=== PATIENT | female | born 1945 | race Caucasian/White ===

== ENCOUNTER → 2017-10-28 | Outpatient (CLI) | payer OTHER | END | disposition home or self-care (01) | LOC: KCIC MAMMO 09:58 | DX: Z12.31 Encounter for screening mammogram for malignant neoplasm of breast (principal) | CPT/HCPCS: 77063; 77067 ==

== ENCOUNTER 2018-03-16 06:21 | Outpatient (CLI) | payer OTHER ==
[2018-03-16] MEDS ORDERED: LIDOCAINE 2% 20 ML VIAL. (07:07)
[2018-03-16] MEDS ORDERED: IODIXANOL 320 MG/ML 100 ML VIAL. (07:07)
[2018-03-16 07:19] LABS: HEMOGLOBIN 13.4 g/dL (12.0-15.5); MEAN CORPUSCULAR HEMOGLOBIN 31 pg (25-35); MEAN CORPUSCULAR HGB CONC 34 g/dL (31-37); MEAN CORPUSCULAR VOLUME 89 fL (79-100); PLATELET COUNT 213 x10^3/uL (140-400); RED BLOOD COUNT 4.37 x10^6/uL (3.50-5.40); RED CELL DISTRIBUTION WIDTH 15.2 % (11.5-14.5); WHITE BLOOD COUNT 6.9 x10^3/uL (4.0-11.0)
[2018-03-16 07:33] LABS: INR 1.1 (0.8-1.1); PROTHROMBIN TIME PATIENT 13.2 SEC (11.7-14.0)
[2018-03-16] MEDS ORDERED: fentaNYL PF VIAL 100 MCG/2 ML VIAL (08:01)
[2018-03-16] MEDS ORDERED: MIDAZOLAM HCL/PF 5 MG/5 ML VIAL. (08:01)
[2018-03-16] MEDS ORDERED: NITROGLYCERIN OINT 1 GM PACKET. (08:26)
[2018-03-16] MEDS: LIDOCAINE 2% 20 ML VIAL. IJ (09:14)
[2018-03-16] MEDS: IODIXANOL 320 MG/ML 100 ML VIAL. IART (09:14)
[2018-03-16] MEDS: fentaNYL PF VIAL 100 MCG/2 ML VIAL IV (09:16)
[2018-03-16] MEDS: MIDAZOLAM HCL/PF 5 MG/5 ML VIAL. IV (09:16)
[2018-03-16] MEDS: NITROGLYCERIN OINT 1 GM PACKET. TP (09:16)
[2018-03-16] MEDS ORDERED: IV NORMAL SALINE 1000ML BAG 1,000 ML IV (09:17)
[2018-03-16] MEDS ORDERED: NITROGLYCERIN SUBLINGUAL 0.4 MG BOTTLE OF 25. SL (09:30)
[2018-03-16] MEDS ORDERED: 0.9 % SODIUM CHLORIDE 10 ML DISP.SYRIN. IV (09:30)
== END 2018-03-16 14:35 | disposition home or self-care (01) ==
LOC: CCL 06:21
DX: R94.39 Abnormal result of other cardiovascular function study (principal); I12.9 Hypertensive chronic kidney disease with stage 1 through stage 4 chronic kidney disease, or unspecified chronic kidney disease; E11.22 Type 2 diabetes mellitus with diabetic chronic kidney disease; N18.3 Chronic kidney disease, stage 3 (moderate); J45.909 Unspecified asthma, uncomplicated; Z87.01 Personal history of pneumonia (recurrent); K21.9 Gastro-esophageal reflux disease without esophagitis; M10.9 Gout, unspecified; M19.90 Unspecified osteoarthritis, unspecified site; Z98.42 Cataract extraction status, left eye; Z98.41 Cataract extraction status, right eye; Z96.1 Presence of intraocular lens; Z96.653 Presence of artificial knee joint, bilateral; Z90.49 Acquired absence of other specified parts of digestive tract; Z96.641 Presence of right artificial hip joint; Z88.1 Allergy status to other antibiotic agents; Z98.890 Other specified postprocedural states; Z79.82 Long term (current) use of aspirin; Z79.899 Other long term (current) drug therapy; Z79.84 Long term (current) use of oral hypoglycemic drugs
CPT/HCPCS: 36415; 85027; 85610; 93458; 93460; 99152; 99153; C1769; C1771; C1892; G0269; J1644; J2250; J3010

== ENCOUNTER → 2018-09-07 | Outpatient (CLI) | payer OTHER ==
[2018-03-16 13:10] VITALS: BP 145/85
[~2018-09-07] MED LIST: ACYC400T PO; ALBU8.5H6 IH; ALLO300T PO; AMLO5TAB7 PO; ASPI-630 PO; BACL10TA PO; CARB15DR3 EACHEYE; CELE400C PO; DIPH25TA2 PO; FLUT9.9S NS; HYDR-2761 PO; LORA-877 PO; LOSA1TAB22 PO; LOSA1TAB25 PO; OMEP20CA9 PO; OXYC1TAB19 PO; TEMA15CA PO; WARF-78 PO; WARF4TAB68 PO
--- NOTE | 2018-09-07 11:53 | KCIC ---
CHEST PA LATERAL History: Shortness of air, wheezing, chest tightness x2 days. Comparison: AP chest February 18, 2016. Findings: Atherosclerotic aortic arch. The cardiomediastinal silhouette is normal. Pulmonary vasculature is normal. The lungs are clear. No pleural effusion or pneumothorax is seen. There is no acute bone abnormality. Degenerative endplate spurring of the thoracic spine. IMPRESSION: No acute cardiopulmonary process. Electronically signed by: Archie Bella MD (09/07/2018 11:49 AM) [id number]
== END | disposition home or self-care (01) ==
LOC: KCIC 11:26
PROVIDERS: ATTEND Physician Assistant Medical
DX: I70.0 Atherosclerosis of aorta (principal); R07.89 Other chest pain; R06.02 Shortness of breath
CPT/HCPCS: 71046

== ENCOUNTER → 2018-12-27 | Outpatient (CLI) | payer OTHER ==
[2018-03-16 13:10] VITALS: BP 145/85
[~2018-12-27] MED LIST changes: +AMLO5TAB10 PO; -AMLO5TAB7 PO; -LORA-877 PO; +LORA-915 PO; +OMEP20CA10 PO; -OMEP20CA9 PO
--- NOTE | 2018-12-27 13:35 | KCIC ---
Bilateral digital screening mammograms with 3-D tomosynthesis: Reason for examination: Routine screening. Comparison is made to previous studies dated back to 04/16/2015. Bilateral mammograms in CC and oblique projections were obtained with 2-D imaging and 3-D tomosynthesis imaging on a Siemens Inspiration unit and reviewed on the workstation. Interpretation was made with the benefit of CAD. The skin and nipples show no abnormalities. No abnormal axillary lymph nodes are seen. The breast parenchyma shows scattered fatty and fibroglandular density. (Breast density: Category B.) There continue to be small nodular parenchymal densities bilaterally which are stable. There are no new dominant masses, suspicious calcifications or architectural distortion. Benign calcifications are present. Impression: No evidence of malignancy. Recommend routine screening. BI-RAD Category 2: Benign. "Our facility is accredited by the [employer] Mammography Program." This patient's information has been entered into a reminder system for the patient to be notified with the results of her examination and a target date for the next mammogram. Electronically signed by: Ana Claros MD (12/27/2018 1:32 PM) [id number]
== END | disposition home or self-care (01) ==
LOC: KCIC MAMMO 11:54
PROVIDERS: ATTEND Physician Assistant Medical
DX: Z12.31 Encounter for screening mammogram for malignant neoplasm of breast (principal); R92.8 Other abnormal and inconclusive findings on diagnostic imaging of breast
CPT/HCPCS: 77063; 77067

== ENCOUNTER → 2019-09-11 | Outpatient (CLI) | payer OTHER ==
[2019-06-17 15:00] VITALS: BP 142/59
[~2019-09-11] MED LIST changes: +CARV25TA2 PO; +HYDR-2765 PO; +MELO15TA23 PO; +OMEP-229 PO; -OMEP20CA10 PO
--- NOTE | 2019-09-11 09:29 | RAD ---
EXAM: Chest, 2 views. HISTORY: Shortness of air. COMPARISON: 06/14/2019 FINDINGS: 2 views of the chest are obtained. There is no infiltrate, pleural effusion or pneumothorax. The heart is normal in size. There are few small nodular opacities within both lungs. IMPRESSION: 1. No acute pulmonary finding. 2. Small pulmonary nodules, better characterized on the recent CT dated 06/14/2019. Electronically signed by: Lyubov Miranda MD (09/11/2019 9:26 AM) [place] [id number]
--- NOTE | 2019-09-11 12:52 | RAD ---
V/Q LUNG SCAN CLINICAL INDICATIONS: Shortness of air for 4 months. History of pulmonary embolism in June 2019. COMPARISON: June 14, 2019 V/Q lung scan and chest x-ray dated September 11, 2019. TECHNIQUE: After inhalation of 12 mCi of Xenon 133 gas, anterior and posterior planar images of the lung villalobos were performed in the single breath and equilibrium and washout phases. After IV infusion of 6.6 mCi of technetium 99m MAA, multiplanar images of both lung villalobos were performed. FINDINGS: There is retention of radiotracer activity within both lung villalobos especially within the right midlung zone consistent with air trapping in association with COPD. Multiple bilateral peripheral subsegmental perfusion defects are again seen. The previously seen segmental wedge-shaped perfusion defect within the left upper lobe on the previous study has resolved. No new segmental perfusion defects are seen. IMPRESSION: Previously seen left upper lobe segmental perfusion defect on June 14, 2019 has resolved. No new segmental perfusion defects are seen today. Therefore, the overall probability for pulmonary embolism is considered low. Electronically signed by: Mark Ledbetter MD (09/11/2019 12:49 PM) [facility]
== END | disposition home or self-care (01) ==
LOC: NM 08:53
PROVIDERS: ATTEND Internal Medicine Critical Care Medicine
DX: R91.8 Other nonspecific abnormal finding of lung field (principal); I10 Essential (primary) hypertension; Z79.01 Long term (current) use of anticoagulants; Z86.711 Personal history of pulmonary embolism
CPT/HCPCS: 71046; 78582; A9540; A9558; 96374

== ENCOUNTER → 2019-12-12 | Outpatient (CLI) | payer MEDICARE ==
[2019-06-17 15:00] VITALS: BP 142/59
[~2019-12-12] MED LIST changes: -OMEP-229 PO; +OMEP20CA16 PO
--- NOTE | 2019-12-12 17:21 | RAD ---
EXAM: CHEST PA LATERAL INDICATION: Cough. TECHNIQUE: Single view COMPARISON: 09/11/2019 FINDINGS: The heart size is normal. The great vessels appear unremarkable. There is no hilar or mediastinal mass. Lungs show mild diffuse interstitial prominence. There is no pleural effusion or pneumothorax. There are no significant osseous abnormalities. IMPRESSION: Mild diffuse interstitial prominence. Correlate for any evidence of fluid overload. No focal consolidation. Electronically signed by: Jimmy Lott MD (12/12/2019 5:18 PM) [id number]
== END | disposition home or self-care (01) ==
LOC: RAD 12:37
PROVIDERS: ATTEND Internal Medicine Pulmonary Disease
DX: R05 Cough (principal)
CPT/HCPCS: 71046

== ENCOUNTER → 2019-12-29 | Outpatient (CLI) | payer MEDICARE ==
[2019-06-17 15:00] VITALS: BP 142/59
--- NOTE | 2019-12-29 12:33 | RAD ---
EXAM: CT Chest without IV contrast CLINICAL HISTORY: Lung nodule COMPARISON: 06/14/2019, thyroid ultrasound 06/15/2019 TECHNIQUE: CT of the chest without intravenous contrast. Axial, coronal and sagittal reformatted images were generated. ---PQRS compliance statement - One or more of the following individualized dose reduction techniques were utilized for this study: 1. Automated exposure control 2. Adjustment of the mA and/or kV according to patient size 3. Use of iterative reconstruction technique--- FINDINGS: Lack of intravenous contrast limits evaluation of solid organs, vasculature, and lymph nodes. Chest: No axillary lymphadenopathy. No mediastinal or hilar lymphadenopathy. Right thyroid nodule measures 4.2 x 4.1 cm. Heart is not enlarged. Aortic calcifications are seen. No pleural effusion or pneumothorax. 3 mm right upper lobe lung nodule (series 3 image 74) is stable. 3 mm lung nodule along the minor fissure (series 3 image 136) is stable. 4 mm right middle lobe lung nodule (series 3 image 165) is stable. 4 mm peripheral right lower lobe lung nodule (series 3 image 206) is stable. Posterior right lower lobe lung nodule (series 3 image 204) is stable. 6 mm nodule in the medial left upper lobe (series 3 image 100) is stable. Left lower lobe lung nodule (series 3 image 177) is stable. Several additional <6 mm lung nodules are seen bilaterally, stable. Visualized Upper abdomen: Cholecystectomy clips are seen. Upper abdomen is otherwise clear. Bones: Osseous structures are grossly stable including degenerative changes of the spine. IMPRESSION: Multiple bilateral lung nodules are grossly stable in size. Continued follow-up with CT chest in 6-12 months is recommended. Right thyroid nodule measures 4.2 cm, FNA was recommended on prior thyroid ultrasound. Electronically signed by: Jovanni Valdez MD (12/29/2019 12:30 PM) [email or web address]
== END | disposition home or self-care (01) ==
LOC: CT 10:49
PROVIDERS: ATTEND Internal Medicine Critical Care Medicine
DX: R91.8 Other nonspecific abnormal finding of lung field (principal); E04.1 Nontoxic single thyroid nodule; I70.0 Atherosclerosis of aorta; Z90.49 Acquired absence of other specified parts of digestive tract
CPT/HCPCS: 71250

== ENCOUNTER → 2020-02-21 | Outpatient (CLI) | payer MEDICARE ==
[2019-06-17 15:00] VITALS: BP 142/59
[~2020-02-21] MED LIST changes: +AMOX1TAB11 PO; +AZIT250T6 PO; +HYDR12.58 PO; +MECL-75 PO; +UMEC62.5 IH; +[UNRECOGNIZED DRUG - CODE] PO
--- NOTE | 2020-02-21 12:50 | RAD ---
PA and lateral views of the chest. Comparison: 12/12/2019. Indication: Cough Findings: The heart size is normal. No pneumothorax or effusion. There are a few patchy peripheral interstitial opacities identified in the lungs. The bony structures are intact. Impression: 1. Patchy peripheral interstitial opacities suggest atypical pneumonia given history of cough. Electronically signed by: Marcelo Smith MD (02/21/2020 12:47 PM) [id number]
== END | disposition home or self-care (01) ==
LOC: RAD 10:55
PROVIDERS: ATTEND Physician Assistant Medical
DX: R05 Cough (principal); R06.02 Shortness of breath
CPT/HCPCS: 71046

== ENCOUNTER → 2020-05-29 | Outpatient (CLI) | payer MEDICARE ==
[2020-02-24 11:00] VITALS: BP 149/66
[~2020-05-29] MED LIST changes: -WARF-78 PO; +WARF5TAB2 PO
--- NOTE | 2020-05-29 13:04 | RAD ---
EXAM: CAROTID DOPPLER SONOGRAM. HISTORY: Dizziness, vertigo. TECHNIQUE: Becker scale and color Doppler sonographic evaluation of the neck with spectral waveform analysis was performed and static images are submitted for review. FINDINGS: RIGHT: The peak systolic velocity within the common carotid artery is 68 cm/sec. The peak systolic velocity within the internal carotid artery is 63 cm/sec and the end diastolic velocity within the internal carotid artery is 16 cm/sec. The ICA/CCA ratio is 0.75. Grayscale images demonstrate no grayscale stenosis. LEFT: The peak systolic velocity within the common carotid artery is 98 cm/sec. The peak systolic velocity within the internal carotid artery is 103 cm/sec and the end diastolic velocity within the internal carotid artery is 19 cm/sec. The ICA/CCA ratio is 1.1. Grayscale images demonstrate no grayscale stenosis. There is antegrade flow within both vertebral arteries. IMPRESSION: 1. No evidence of hemodynamically significant stenosis. PQRS Compliance Statement - Stenosis calculations for CT, MR and conventional angiography are based upon measurement of the distal ICA diameter in accordance with the NASCET methodology. Stenosis calculations for carotid ultrasound studies are derived from validated velocity criteria which are known to correlate with the NASCET methodology. Electronically signed by: Natalie Griffin MD (05/29/2020 1:01 PM) [id number]
== END | disposition home or self-care (01) ==
LOC: US 11:58
PROVIDERS: ATTEND Physician Assistant Medical
DX: R42 Dizziness and giddiness (principal)
CPT/HCPCS: 93880

== ENCOUNTER → 2020-07-10 | Outpatient (CLI) | payer MEDICARE ==
[2020-02-24 11:00] VITALS: BP 149/66
[~2020-07-10] MED LIST changes: -DIPH25TA2 PO; +[UNRECOGNIZED DRUG - CODE] PO
[2020-07-10 11:31] LABS: CREATININE 1.3 mg/dL (0.6-1.0); GFR 39.8
== END | disposition home or self-care (01) ==
LOC: CT 11:05
PROVIDERS: ATTEND Internal Medicine Cardiovascular Disease
DX: I26.99 Other pulmonary embolism without acute cor pulmonale (principal); E11.8 Type 2 diabetes mellitus with unspecified complications
CPT/HCPCS: 36415; 82565; 84520

== ENCOUNTER → 2020-08-09 | Outpatient (CLI) | payer MEDICARE ==
[2020-02-24 11:00] VITALS: BP 149/66
[~2020-08-09] MED LIST changes: +AMLO-186 PO; -AMLO5TAB10 PO
--- NOTE | 2020-08-09 10:24 | RAD ---
Chest radiograph 08/09/2020 12:00 AM INDICATION: Palpitations for one year COMPARISON: 02/21/2020 TECHNIQUE: Frontal and lateral views of the chest are provided. FINDINGS: The cardiomediastinal silhouette is within normal limits. There is increased pulmonary vascular congestion. No significant pleural effusions or pneumothorax. No significant osseous abnormality is identified. IMPRESSION: Mild pulmonary vascular congestion as may be seen with congestive heart failure or alternate fluid overload state. Electronically signed by: Martha Valero MD (08/09/2020 10:21 AM) [id number]
--- NOTE | 2020-08-09 12:38 | RAD ---
EXAM: Pulmonary perfusion imaging. HISTORY: History of pulmonary embolism, dyspnea. COMPARISON: 09/11/2019, 08/09/2020, 12/29/2019. FINDINGS: 5.5 mCi Tc-99m MAA was administered intravenously. Scintigraphic images of the lungs were obtained in multiple projections. There are diffuse perfusion defects most notably within both upper lobes. This most likely reflects lung disease as seen on prior CT. There are a few small segmental defects, superimposed on these large defects. This appearance is not clearly changed since 09/11/2019. IMPRESSION: 1. Diffuse perfusion abnormalities bilaterally appear stable and most likely reflect background lung disease. However, pulmonary emboli cannot be excluded based on these findings. CTA could further evaluate if there is persistent concern. Electronically signed by: Natalie Griffin MD (08/09/2020 12:35 PM) [id number]
== END ==
LOC: NM 08:42
PROVIDERS: ATTEND Internal Medicine Cardiovascular Disease
DX: I26.99 Other pulmonary embolism without acute cor pulmonale (principal); R00.2 Palpitations; R09.89 Other specified symptoms and signs involving the circulatory and respiratory systems
CPT/HCPCS: 71046; 78580; A9540

== ENCOUNTER → 2020-10-22 | Outpatient (CLI) | payer MEDICARE ==
[2020-02-24 11:00] VITALS: BP 149/66
[~2020-10-22] MED LIST changes: +ACYC-12 PO; -ACYC400T PO
--- NOTE | 2020-10-24 10:53 | CARD ---
MR#: [id number] Account#: Date of Study: 10/22/2020 Ordering Physician: Loretta: Jenae Noe RDCS APPROVED REPORT EXAM: Two-dimensional and M-mode echocardiogram with Doppler and color Doppler. Other Information Quality : AverageHR: 58bpm Rhythm : NSRTechnically limited study due to body habitus. INDICATION Hypertension/HCVD RISK FACTORS Hypertension 2D DIMENSIONS Left Atrium(2D)3.4 (1.6-4.0cm)IVSd0.9 (0.7-1.1cm) Aortic Root(2D)2.8 (2.0-3.7cm)LVDd5.0 (3.9-5.9cm) LVOT Diameter2.1 (1.8-2.4cm)PWd1.0 (0.7-1.1cm) LVDs3.6 (2.5-4.0cm)FS (%) 28.5 % SV64.3 mlLVEF(%)54.8 (>50%) Aortic Valve AoV Peak Yariel.132.5cm/sAoV VTI34.0cm AO Peak GR.7.0mmHgLVOT Peak Yariel.77.5cm/s AO Mean GR.4mmHgAVA (VMAX)2.04cm2 Mitral Valve MV E Mxwlgvsy14.6cm/sMV DECEL [id number] MV A Enbyumsm384.0cm/sE/A Ratio0.8 LEFT VENTRICLE The left ventricle is normal size. There is normal left ventricular wall thickness. The left ventricu lar systolic function is normal and the ejection fraction is within normal range. Estimated ejection fraction is 55-60% There is normal LV segmental wall motion. Transmitral Doppler flow pattern is Grad e I-abnormal relaxation pattern. RIGHT VENTRICLE The right ventricle is normal size. There is normal right ventricular wall thickness. The right ventr icular systolic function is normal. ATRIA The left atrium size is normal. The right atrium size is normal. The interatrial septum is intact wit h no evidence for an atrial septal defect or patent foramen ovale as noted on 2-D or Doppler imaging. AORTIC VALVE The aortic valve is grossly normal in structure and function. Not well visualized. Doppler and Color Flow revealed no significant aortic regurgitation. There is no significant aortic valvular stenosis. MITRAL VALVE The mitral valve is normal in structure and function. There is no evidence of mitral valve prolapse. There is no mitral valve stenosis. Doppler and Color-flow revealed trace to mild mitral regurgitation . TRICUSPID VALVE The tricuspid valve is normal in structure and function. Doppler and Color Flow revealed no tricuspid valve regurgitation noted. There is no tricuspid valve stenosis. PULMONIC VALVE Doppler and Color Flow revealed no pulmonic valvular regurgitation. There is no pulmonic valvular akanksha nosis. GREAT VESSELS The aortic root is normal in size. The ascending aorta is normal in size. The IVC is normal in size a nd collapses >50% with inspiration. PERICARDIAL EFFUSION There is no evidence of significant pericardial effusion. Critical Notification Critical Value: No <Conclusion> The left ventricular systolic function is normal and the ejection fraction is within normal range. E stimated ejection fraction is 55-60% There is normal LV segmental wall motion. Signed by : Diego Ramirez, Electronically Approved : 10/22/2020 15:40:37
== END ==
LOC: ECHO 13:06
PROVIDERS: ATTEND Internal Medicine Cardiovascular Disease
DX: I34.0 Nonrheumatic mitral (valve) insufficiency (principal); I10 Essential (primary) hypertension
CPT/HCPCS: 93306

== ENCOUNTER → 2021-05-28 | Outpatient (CLI) | payer MEDICARE ==
[2020-02-24 11:00] VITALS: BP 149/66
--- NOTE | 2021-05-28 17:22 | KCIC ---
Bilateral digital screening mammograms with 3-D tomosynthesis: Reason for examination: Routine screening. Comparison is made to previous studies dated back to 06/23/2016 Bilateral mammograms in CC and oblique projections were obtained with 2-D imaging and 3-D tomosynthes is imaging on a Siemens Inspiration unit and reviewed on the workstation. Interpretation was made wit h the benefit of CAD. The skin and nipples show no abnormalities. No abnormal axillary lymph nodes are seen. The breast par enchyma shows scattered fatty and fibroglandular density. (Breast density: Category B.). Waxing and w aning scattered small nodular parenchymal densities bilaterally. There are no new dominant masses, rose spicious calcifications or architectural distortion. Benign calcifications are present. Impression: No evidence of malignancy. Recommend routine screening. BI-RAD Category 2: Benign. "Our facility is accredited by the [employer] Mammography Program." This patient's information has been entered into a reminder system for the patient to be notified wit h the results of her examination and a target date for the next mammogram. Electronically signed by: Patric Mendoza DO (05/28/2021 5:20 PM) [email or web address]
== END ==
LOC: KCIC MAMMO 10:48
PROVIDERS: ATTEND Family Medicine
DX: Z12.31 Encounter for screening mammogram for malignant neoplasm of breast (principal)
CPT/HCPCS: 77063; 77067

== ENCOUNTER 2021-07-17 12:35 | Emergency (ER) | payer MEDICARE ==
[~2021-07-17] VITALS: Ht 154.9 cm; Wt 91.8 kg
[2021-07-17] MEDS ORDERED: FUROSEMIDE 40 MG TABLET. PO ONE (13:30)
--- NOTE | 2021-07-17 14:28 | RAD ---
EXAM: Right lower extremity venous Doppler sonogram. HISTORY: Pain and swelling. TECHNIQUE: Becker scale and color Doppler sonographic evaluation of the right lower extremity veins wit h spectral waveform analysis was performed. FINDINGS: There is normal color flow, normal compressibility and there are normal spectral waveforms in the common femoral, superficial femoral, popliteal, posterior tibial and greater saphenous veins. There is soft tissue edema. IMPRESSION: No Doppler evidence of lower extremity deep venous thrombosis. Electronically signed by: Lyubov Miranda MD (07/17/2021 2:26 PM) [id number]
[2021-07-17 14:50] VITALS: BP 155/70
--- NOTE | 2021-07-17 15:06 | PHYS DOC ---
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 Past Surgical History: Appendectomy, Cholecystectomy, Hip Replacement, Knee Replacement Additional Past Surgical Histo: breast surgery Smoking Status: Never Smoker Alcohol Use: None Drug Use: None General Adult EDM: Chief Complaint: LOWER EXTREMITY EDEMA HPI: HPI: Patient is a 75 year old female with history of COPD, lung disease, hypertension, high cholesterol, chronic edema to bilateral lower extremities, who presents to the ED today complaining of mild intermittent right lower extrem ity pain and swelling, symptoms have been going on for over 1 week, patient states symptoms are worse when she bends her right knee and bears weight to the right lower extremity. Patient states she was seen by the PCP a week ago for the same complaint. She states they did right hip x-rays which were negative for any acute findings. She states she was put on hydrocodone and prednisone. She completed prednisone yesterday. She states she has continued to have the pain and was sent to the ED to have an ultrasound of the right lower extremity to rule out DVT. She is on Eliquis. Review of Systems: Review of Systems: Constitutional: Denies fever or chills. [] Eyes: Denies change in visual acuity. [] HENT: Denies nasal congestion or sore throat. [] Respiratory: Denies cough or shortness of breath. [] Cardiovascular: Denies chest pain or edema. [] GI: Denies abdominal pain, nausea, vomiting, bloody stools or diarrhea. [] : Denies dysuria. [] Musculoskeletal: Denies back pain or joint pain. [] Integument: Reports right lower extremity pain Neurologic: Denies headache, focal weakness or sensory changes. [] Psychiatric: Denies depression or anxiety. [] Heart Score: C/O Chest Pain: N/A Risk Factors: Risk Factors: DM, Current or recent (<one month) smoker, HTN, HLP, family history of CAD, obesity. Risk Scores: Score 0 - 3: 2.5% MACE over next 6 weeks - Discharge Home Score 4 - 6: 20.3% MACE over next 6 weeks - Admit for Clinical Observation Score 7 - 10: 72.7% MACE over next 6 weeks - Early Invasive Strategies Current Medications: Current Medications Medications (Trade) Dose Ordered Sig/Juan Start Time Stop Time Status Last Admin Dose Admin Furosemide (Lasix) 40 mg 1X ONCE 07/17/21 13:30 07/17/21 13:31 DC 07/17/21 14:03 40 MG Allergies: Allergies: Allergies Coded Allergies Type Severity Reaction Last Updated Verified Cephalexin Monohydrate Adverse Reaction Intermediate Itching 03/24/16 Yes Physical Exam: PE: Constitutional: Well developed, well nourished, no acute distress, non-toxic appearance. [] HENT: Normocephalic, atraumatic, bilateral external ears normal, oropharynx moist, no oral exudates, nose normal. [] Eyes: PERRLA, EOMI, conjunctiva normal, no discharge. [] Neck: Normal range of motion, no tenderness, supple, no stridor. [] Cardiovascular:Heart rate regular rhythm, no murmur [] Lungs & Thorax: Bilateral breath sounds clear to auscultation [] Abdomen: Bowel sounds normal, soft, no tenderness, no masses, no pulsatile masses. [] Skin: Warm, dry, no erythema, no rash. [] Back: No tenderness, no CVA tenderness. [] Extremities: No tenderness, no cyanosis, no clubbing, ROM intact, bilateral lower extremity with +3 pitting edema. Negative Homans' sign to bilateral lower extremities. Neurologic: Alert and oriented X 3, normal motor function, normal sensory function, no focal deficits noted. [] Psychologic: Affect normal, judgement normal, mood normal. [] Current Patient Data: Vital Signs: Vital Signs Date Time Temp Pulse Resp B/P (MAP) Pulse Ox O2 Delivery O2 Flow Rate FiO2 07/17/21 12:57 98.9 84 18 194/84 (120) 97 Room Air 98.9 EKG: EKG: [] Radiology/Procedures: Radiology/Procedures: []PROCEDURE: VENOUS LOWER EXTREMITY RIGHT EXAM: Right lower extremity venous Doppler sonogram. HISTORY: Pain and swelling. TECHNIQUE: Becker scale and color Doppler sonographic evaluation of the right lower extremity veins with spectral waveform analysis was performed. FINDINGS: There is normal color flow, normal compressibility and there are normal spectral waveforms in the common femoral, superficial femoral, popliteal, posterior tibial and greater saphenous veins. There is soft tissue edema. IMPRESSION: No Doppler evidence of lower extremity deep venous thrombosis. Electronically signed by: Lyubov Dominguez MD (07/17/2021 2:26 PM) [id number] DICTATED and SIGNED BY: LYUBOV DOMINGUEZ MD DATE: 07/17/21 [id number] Course & Med Decision Making: Course & Med Decision Making Pertinent Labs and Imaging studies reviewed. (See chart for details) This is 75-year-old female patient presented to the ED today with right lower extremity pain, swelling, symptoms for 1 week. Has been following up with the PCP. Was sent for venous Doppler of the right lower extremity which is negative for any acute findings. She was encouraged to continue taking her hydrocodone as needed. Elevate bilateral lower extremities. She is also on a water pill which she is Taking today. She has +3 pitting edema. She was given furosemide in the ED. Will follow up with her own PCP in the course of this week or next week German Disclaimer: German Disclaimer: This electronic medical record was generated, in whole or in part, using a voice recognition dictation system. Departure Departure Impression: Primary Impression: Pain and swelling of right lower extremity Additional Impression: Hypertension Qualified Codes: I10 - Essential (primary) hypertension Disposition: HOME / SELF CARE / HOMELESS Condition: STABLE Referrals: DOLLY SCHNEIDER MD (PCP) follow up next week Patient Instructions: Edema, [id number], Hypertension Additional Instructions: You were evaluated in the emergency room for right lower extremity pain. Your venous Doppler of the right lower extremity is negative for any DVTs. Please follow-up with the primary care doctor in orthopedic doctor next week. Ensure you are taking your water pill. Try to elevate the right lower extremity PAUL ZAMORANO APRN Jul 17, 2021 15:06
== END 2021-07-17 15:20 | disposition home or self-care (01) ==
LOC: ER 12:35
DX: M79.604 Pain in right leg (principal); R60.0 Localized edema; I10 Essential (primary) hypertension; I25.10 Atherosclerotic heart disease of native coronary artery without angina pectoris; J44.9 Chronic obstructive pulmonary disease, unspecified; K21.9 Gastro-esophageal reflux disease without esophagitis; E78.00 Pure hypercholesterolemia, unspecified; Z88.1 Allergy status to other antibiotic agents
CPT/HCPCS: 93971; 99284

== ENCOUNTER → 2022-02-13 | Outpatient (CLI) | payer MEDICARE ==
--- NOTE | 2022-02-13 15:24 | RAD ---
EXAM: CT CHEST WITHOUT CONTRAST HISTORY: Lung nodule COMPARISON: CT chest 12/29/2019 TECHNIQUE: Helical CT of the chest performed without contrast. Coronal and sagittal reformats were o btained. One or more of the following individualized dose reduction techniques were utilized for this examinat ion: 1. Automated exposure control 2. Adjustment of the mA and/or kV according to patient size 3. Use of iterative reconstruction technique. FINDINGS: Thyroid gland and thoracic inlet: The right thyroid lobe is enlarged measuring 3.7 x 3.5 x 7.0 cm, un changed. Heart and great vessels: The heart is normal in size. No coronary calcifications. The thoracic aorta is normal in caliber. No pericardial effusion. Mediastinum and joe: There is no mediastinal or hilar lymphadenopathy. Lungs and pleura: There are multiple bilateral pulmonary nodules, some of which are unchanged and donnie e of which have slightly increased in size. Nodules in the left lung are unchanged including a 5 mm n odule in the anterior left upper lobe (image 114, series 8, 5 mm nodule in the posterior left upper l obe (image 127, series 8), and 6 mm nodule anterior left lower lobe (image 195). A few nodules in the right upper lobe have increased in size and a few are new. A nodule in the centr al right upper lobe now measures 5 mm, previously 4 mm (image 69, series 8). A nodule in the anterola teral right upper lobe now measures 4 mm, previously 3 mm (image 126, series 8). There is a new adjac ent 5 mm nodule and new small cluster of tree-in-bud nodules (image 122, series 8). A nodule in the medial right middle lobe abutting the mediastinum is slightly larger, now 7 mm, previ ously 6 mm (image 27, series 8). There are multiple nodules in the right lower lobe measuring up to 4 mm, unchanged. There is increased mosaic attenuation of the lungs. Mild airway wall thickening. No significant bronc hiectasis. No pleural effusion or pneumothorax. Chest wall and axillae: No axillary lymphadenopathy. Upper abdomen: Surgical changes of cholecystectomy. Bones: No acute osseous abnormality. Mild degenerative disc disease. IMPRESSION: 1. Multiple small bilateral pulmonary nodules. In the right lung, there is a new 5 mm nodule and new adjacent tree-in-bud nodules, likely infectious/inflammatory. Several other nodules in the right hermelindo g have slightly increased in size including a 7mm nodule in the right middle lobe abutting the medias tinum. Many other nodules bilaterally are unchanged. Recommend follow-up CT chest in 3 months to ensu re stability. 2. Increased mosaic attenuation of the lungs, nonspecific but likely related to air trapping and bro nchiolitis. Electronically signed by: Milagros Saleh MD (02/13/2022 3:22 PM) [id number]
== END ==
LOC: CT 09:50
PROVIDERS: ATTEND Internal Medicine Critical Care Medicine
DX: R91.8 Other nonspecific abnormal finding of lung field (principal); E04.9 Nontoxic goiter, unspecified; M51.34 Other intervertebral disc degeneration, thoracic region; Z90.49 Acquired absence of other specified parts of digestive tract
CPT/HCPCS: 71250

== ENCOUNTER → 2022-02-26 | Outpatient (CLI) | payer MEDICARE ==
--- NOTE | 2022-02-26 13:03 | RAD ---
MR#: [id number] Date of Study: 02/26/2022 Ordering Physician: KAILA SHERMAN, Referring Physician: KAILA SHERMAN, Tech: Mason Galvez MBA, RDMS, RVT, RDCS, RTR APPROVED REPORT Bilateral Lower Extremity Venous Study for DVT Patient Location: OUT-PATIENT Indications Lower Extremity Edema: Bilateral Vein Imaging (Right) CFV (R): Compressible SFJ (R): Compressible FEM (R): Compressible POP (R): Compressible DFV (R): Compressible PTV (R): Spontaneous GSV (R): Spontaneous Peroneals (R): Spontaneous Vein Imaging (Left) CFV (L): Compressible SFJ (L): Compressible FEM (L): Compressible POP (L): Compressible DFV (L): Compressible PTV (L): Spontaneous GSV (L): Spontaneous Peroneals (L): Spontaneous Doppler Evaluation (Right) CFV (R): Spontaneous POP (R):Spontaneous Doppler Evaluation (Left) CFV (L):Spontaneous POP (L):Spontaneous Findings Grayscale images of bilateral common femoral, superficial femoral and popliteal veins were grossly un remarkable with fully compressible veins without any evidence of thrombus. Spectral waveform and col or duplex analysis did not show any evidence of obstruction to flow with normal respirophasic variati on. Below the knee veins showed spontaneous flow. No obvious deep venous thrombosis noted. Critical Notification Critical Value: No <Conclusion> Bilateral lower extremity venous duplex scan did not show any evidence of deep venous thrombosis. Signed by : Toño Ramirez, Electronically Approved : 02/26/2022 13:03:06
== END ==
LOC: US 12:12
PROVIDERS: ATTEND Internal Medicine Cardiovascular Disease
DX: R60.0 Localized edema (principal)
CPT/HCPCS: 93970

== ENCOUNTER → 2022-03-10 | Outpatient (CLI) | payer MEDICARE ==
--- NOTE | 2022-03-10 15:45 | RAD ---
MR#: [id number] Date of Study: 03/10/2022 Ordering Physician: KAILA SHERMAN, Referring Physician: KAILA SHERMAN, Tech: Mason Galvez MBA, RDMS, RVT, RDCS, RTR APPROVED REPORT Patient Location : OUT-PATIENT Indications Lower Extremity Edema : Bilateral Greater Saphenous Veins (GSV) Significant venous relux noted in the RIGHT GSV at the following levels : Superficial Femoral Junctio n Findings Limited grayscale images of the bilateral saphenofemoral junctions are grossly unremarkable. Spectral waveforms and color Doppler demonstrate no evidence of reflux in the bilateral greater and l will saphenous veins. Critical Notification Critical Value: No <Conclusion> 1. Negative for reflux in the bilateral greater and lesser saphenous veins. Signed by : Diego Ramirez, Electronically Approved : 03/10/2022 15:45:03
--- NOTE | 2022-03-10 15:47 | CARD ---
MR#: [id number] Date of Study: 03/10/2022 Ordering Physician: KAILA SHERMAN, Referring Physician: KAILA SHERMAN, Tech: Brina Shaver [facility] APPROVED REPORT EXAM: Two-dimensional and M-mode echocardiogram with Doppler and color Doppler. Other Information Quality : AverageHR: 54bpm Rhythm : NSRTechnically limited study due to Patient unable to lay on left side INDICATION Dyspnea RISK FACTORS Hypertension Obesity 2D DIMENSIONS Left Atrium(2D)4.1 (1.6-4.0cm)IVSd1.4 (0.7-1.1cm) Aortic Root(2D)2.6 (2.0-3.7cm)LVDd4.3 (3.9-5.9cm) LVOT Diameter1.9 (1.8-2.4cm)PWd1.4 (0.7-1.1cm) LVDs2.8 (2.5-4.0cm)FS (%) 34.4 % SV52.4 mlLVEF(%)63.7 (>50%) Aortic Valve AoV Peak Yariel.154.0cm/sAoV VTI42.4cm AO Peak GR.9.5mmHgLVOT Peak Yariel.98.7cm/s AO Mean GR.5mmHgAVA (VMAX)1.73cm2 Mitral Valve MV E Ubwpnona784.1cm/sMV DECEL [id number] MV A Uattyuku762.3cm/sE/A Ratio0.8 Pulmonary Valve PV Peak Yqbnvvpd95.0cm/s Pulmonary Vein S1 Lkdbxxtf53.8cm/sD2 Klfuolty05.6cm/s PVa [id number] LEFT VENTRICLE The left ventricle is normal size. There is moderate concentric left ventricular hypertrophy. The lef t ventricular systolic function is normal and the ejection fraction is within normal range. The Eject ion Fraction is 60-65%. No regional wall motion abnormalities noted. Tissue Doppler imaging reveals m ild left ventricular diastolic dysfunction. No left ventricle thrombus noted on this study. There is no ventricular septal defect visualized. There is no left ventricular aneurysm. There is no mass note d in the left ventricle. RIGHT VENTRICLE The right ventricle is normal size. The right ventricle is mildly hypertrophied. The right ventricula r systolic function is normal. ATRIA The left atrium size is normal. The right atrium size is normal. The interatrial septum is intact wit h no evidence for an atrial septal defect or patent foramen ovale as noted on 2-D or Doppler imaging. AORTIC VALVE Not well-visualized. No aortic regurgitation is present. There is no aortic valvular stenosis. There is no aortic valvular vegetation. MITRAL VALVE The mitral valve is normal in structure and function. There is no evidence of mitral valve prolapse. There is no mitral valve stenosis. There is no mitral valve regurgitation noted. TRICUSPID VALVE Not well-visualized. Doppler and Color Flow revealed trace tricuspid regurgitation. There is no tricu spid valve prolapse or vegetation. There is no tricuspid valve stenosis. PULMONIC VALVE There is no pulmonic valvular regurgitation. There is no pulmonic valvular stenosis. GREAT VESSELS The aortic root is normal in size. The ascending aorta is normal in size. The IVC is normal in size a nd collapses >50% with inspiration. PERICARDIAL EFFUSION There is no pleural effusion. There is no evidence of significant pericardial effusion. Critical Notification Critical Value: No <Conclusion> The left ventricular systolic function is normal and the ejection fraction is within normal range. Th e Ejection Fraction is 60-65%. No regional wall motion abnormalities noted. Technically difficult study. Signed by : Diego Ramirez, Electronically Approved : 03/10/2022 15:47:06
== END ==
LOC: US 12:40
PROVIDERS: ATTEND Internal Medicine Cardiovascular Disease
DX: I51.7 Cardiomegaly (principal); R60.0 Localized edema; R06.09 Other forms of dyspnea
CPT/HCPCS: 93306; 93970; C8929